=== PATIENT | female | born 1970 | race Caucasian/White ===

== ENCOUNTER 2021-06-14 13:35 | Emergency (ER) | payer OTHER ==
[~2021-06-14] VITALS: Ht 154.9 cm; Wt 75.7 kg
--- NOTE | 2021-06-14 13:45 | NUR ---
Placed in room 6 . Placed on pvc monitor, blood pressure machine and pulse oximeter. To gown for exam. Side rails up. Report given to POLLY Calderon.
[2021-06-14 13:52] VITALS: BP_SYST 154
--- NOTE | 2021-06-14 14:00 | NUR ---
ALESIA Julian at bedside examining patient.
--- NOTE | 2021-06-14 14:13 | NUR ---
Report received. Pt resting in bed; in no acute distress. VSS-BP 133/87. Will continue to monitor.
[2021-06-14] MEDS ORDERED: TRIAMCINOLONE ACETONIDE 40 MG/ML IM ONE (14:15)
[2021-06-14] MEDS ORDERED: BUPIVACAINE /PF 0.25% 30 ML VIAL INJ ONE (14:15)
[2021-06-14] MEDS ORDERED: LIDOCAINE 2%, 20 ML MDV INJ ONE (14:15)
--- NOTE | 2021-06-14 14:37 | NUR ---
Dr Julian to bedside to administer medications re occipital nerve block
[2021-06-14] MEDS ORDERED: IBUP-1969 PO (15:14)
[2021-06-14] MEDS ORDERED: TRAM50TA2 PO (15:14)
--- NOTE | 2021-06-14 15:14 | NUR ---
Dr Julian at bedside to re-evauate patient
[2021-06-14 15:25] VITALS: BP_SYST 154
--- NOTE | 2021-06-14 15:26 | NUR ---
Patient given written and verbal discharge instructions and verbalizes understanding. ER MD discussed with patient the results and treatment provided. Patient in stable condition. ID arm band removed. Rx of Motrin and Tramadol given. Patient educated on pain management and to follow up with PMD. Pain scale 0/10.Opportunity for questions provided and answered. Medication side effect fact sheet provided.
== END 2021-06-14 15:26 | disposition home or self-care (01) ==
LOC: SED 13:35
DX: M54.81 Occipital neuralgia (principal); I10 Essential (primary) hypertension; E11.9 Type 2 diabetes mellitus without complications; Z79.899 Other long term (current) drug therapy
CPT/HCPCS: 64450; 99284; J2001; J3301; J3490

== ENCOUNTER 2021-06-21 17:46 | Emergency (ER) | payer OTHER ==
[~2021-06-21] VITALS: Ht 154.9 cm; Wt 75.7 kg
[~2021-06-21 17:46] MED LIST: IBUP-1969 PO; TRAM50TA2 PO
[2021-06-21 17:53] VITALS: BP_SYST 158
[2021-06-21 19:53] LABS: BASOPHILS % (AUTO) 0.5 % (0.0-2.0); EOSINOPHILS # (AUTO) 0.1 K/uL (0.0-0.4); EOSINOPHILS % (AUTO) 0.6 % (0.0-4.0); HEMATOCRIT 41.4 % (36-48); HEMOGLOBIN 13.8 g/dL (12.0-16.0); LYMPHOCYTES # (AUTO) 2.5 K/uL (1.0-5.5); LYMPHOCYTES % (AUTO) 28.3 % (20.5-51.5); MEAN CORPUSCULAR HEMOGLOBIN 27 pg (27-31); MEAN CORPUSCULAR HGB CONC 33 % (32-36); MEAN CORPUSCULAR VOLUME 81 fL (79.0-98.0); MONOCYTES # (AUTO) 0.5 K/uL (0.0-1.0); MONOCYTES % (AUTO) 5.6 % (1.7-9.3); NEUTROPHILS # (AUTO) 5.7 K/uL (1.8-7.7); PLATELET COUNT (AUTO) 242 K/uL (130-430); RED CELL DISTRIBUTION WIDTH 13.4 % (9.0-15.0); WHITE BLOOD COUNT (AUTO) 8.7 K/uL (4.8-10.8)
[2021-06-21 20:00] LABS: CALCIUM 8.7 mg/dL (8.4-11.0); CREATININE 0.63 mg/dL (0.55-1.30); POTASSIUM 3.8 mmol/L (3.5-5.1)
--- NOTE | 2021-06-21 20:30 | NUR ---
Pt brought by self, A&Ox4, pt presents to ER with anxiety and tingling of extremities, skin pink and warm, cap refill <3, VSS.
--- NOTE | 2021-06-21 21:05 | NUR ---
Dr Leon evaluating patient in the triage room
[2021-06-21] MEDS ORDERED: NEU300 PO (21:41)
[2021-06-21 21:54] VITALS: BP_SYST 158
--- NOTE | 2021-06-21 21:54 | NUR ---
Patient given written and verbal discharge instructions and verbalizes understanding. ER MD discussed with patient the results and treatment provided. Patient in stable condition. ID arm band removed. Rx of Gabapentin given. Patient educated on pain management and to follow up with PMD. Pain Scale 0/10 . Opportunity for questions provided and answered. Medication side effect fact sheet provided.
== END 2021-06-21 21:54 | disposition home or self-care (01) ==
LOC: SED 17:46
DX: R20.2 Paresthesia of skin (principal); R42 Dizziness and giddiness; I10 Essential (primary) hypertension; E11.9 Type 2 diabetes mellitus without complications; Z79.899 Other long term (current) drug therapy
CPT/HCPCS: 36415; 70450-TC; 71045; 76376; 80048; 84484; 85025; 93005; 99285